=== PATIENT | female | born 1990 | race Hispanic/Latino ===

== ENCOUNTER 2017-06-23 06:53 | Inpatient (IN) | payer BC ==
[~2017-06-23] VITALS: Ht 157.5 cm; Wt 98.9 kg
[~2017-06-23 06:53] MED LIST: IRON325 M1 PO; PRENATAL TABLE1 EACH PO; TUMS500 MG PO
[2017-06-23 08:56] VITALS: BP 136/75
[2017-06-23 08:58] LABS: BASOPHIL (%) 0.2 % (0-1); EOSINOPHIL (%) 1.1 % (0-5); EOSINOPHIL COUNT 0.1 K/uL (0-0.3); HEMOGLOBIN 11.3 G/DL (11.9-15.5); IMMATURE GRANULOCYTE (%) 0.6 % (0.0-0.7); LYMPHOCYTE COUNT 2.1 K/uL (1.0-2.8); MCH 28.1 PG (29.0-34.0); MCHC 34.2 G/DL (30.0-36.0); MCV 82.1 FL (83-99); MONOCYTE (%) 6.3 % (3-12); MONOCYTE COUNT 0.5 K/uL (0-0.8); NEUTROPHIL (%) 66.8 % (45-76); NEUTROPHIL COUNT 5.6 K/uL (1.8-6.4); PLATELET COUNT 213 K/uL (156-360); RBC DIS.WIDTH-CV 18.1 % (11.8-14.6); RBC DIS.WIDTH-SD 53.3 % (39-53); RED BLOOD COUNT 4.02 M/uL (3.80-5.20); WHITE BLOOD COUNT 8.3 K/uL (4.1-10.2)
[2017-06-23 11:41] VITALS: BP 129/71
== END 2017-06-23 15:50 | disposition home or self-care (01) | DRG 781 ==
LOC: 2WEST 06:53 → 2SOUTH 12:25 → 2WEST 15:50
PROVIDERS: Obstetrics & Gynecology Obstetrics
DX: O32.1XX1 Maternal care for breech presentation, fetus 1 (principal); Z3A.39 39 weeks gestation of pregnancy; E66.9 Obesity, unspecified; O99.213 Obesity complicating pregnancy, third trimester; Z68.39 Body mass index [BMI] 39.0-39.9, adult; D50.9 Iron deficiency anemia, unspecified; O99.013 Anemia complicating pregnancy, third trimester; Z87.891 Personal history of nicotine dependence
CPT/HCPCS: 59025; 76815; 85025; 86850; 86900; 86901; J2274; J3010; J7120

== ENCOUNTER 2017-07-01 08:17 | Inpatient (IN) | payer BC ==
[2017-06-23 07:24] VITALS: BP 130/72
[2017-07-01] VITALS (19 sets, daily range): BP systolic 115–159; BP diastolic 68–97
[~2017-07-01] VITALS: Ht 157.5 cm; Wt 104.1 kg
[2017-07-01 09:59] LABS: BASOPHIL (%) 0.1 % (0-1); EOSINOPHIL (%) 0.9 % (0-5); EOSINOPHIL COUNT 0.1 K/uL (0-0.3); HEMATOCRIT 33.8 % (36.0-46.0); HEMOGLOBIN 11.7 G/DL (11.9-15.5); IMMATURE GRANULOCYTE (%) 0.5 % (0.0-0.7); LYMPHOCYTE (%) 22.6 % (15-42); LYMPHOCYTE COUNT 1.8 K/uL (1.0-2.8); MCH 28.2 PG (29.0-34.0); MCHC 34.6 G/DL (30.0-36.0); MCV 81.4 FL (83-99); MONOCYTE (%) 5.6 % (3-12); MONOCYTE COUNT 0.4 K/uL (0-0.8); NEUTROPHIL (%) 70.3 % (45-76); NEUTROPHIL COUNT 5.5 K/uL (1.8-6.4); PLATELET COUNT 212 K/uL (156-360); RBC DIS.WIDTH-CV 17.5 % (11.8-14.6); RBC DIS.WIDTH-SD 51.7 % (39-53); RED BLOOD COUNT 4.15 M/uL (3.80-5.20); WHITE BLOOD COUNT 7.8 K/uL (4.1-10.2)
[2017-07-02] VITALS (17 sets, daily range): BP systolic 127–165; BP diastolic 60–87
[2017-07-02 02:49] LABS: ALBUMIN 3.6 g/dL (3.2-4.8); CHLORIDE 108 mEq/L (99-109); POTASSIUM 4.1 mEq/L (3.7-5.4); SODIUM 135 mEq/L (136-147)
[2017-07-02 02:51] LABS: GLUCOSE 129 mg/dL (70-99); TOTAL PROTEIN 6.8 g/dL (6.4-8.3)
[2017-07-02 02:53] LABS: TOTAL BILIRUBIN 0.8 mg/dL (0.0-1.0)
[2017-07-02 02:55] LABS: ALKALINE PHOSPHATASE 187 IU/L (3-129); CREATININE 0.8 mg/dL (0.6-1.3); GFR ESTIMATE (CALCULATED) > 59 mL/min/
[2017-07-02 02:56] LABS: AST (GOT) 20 IU/L (2-34); UREA NITROGEN (BUN) 7 mg/dL (9-23)
[2017-07-02 02:58] LABS: ALT (GPT) 15 IU/L (3-49)
[2017-07-02 09:56] LABS: ALBUMIN 2.9 G/DL (3.2-4.8); ALKALINE PHOSPHATASE 121 IU/L (3-129); ALT (GPT) 12 IU/L (3-49); AST (GOT) 21 IU/L (2-34); CHLORIDE 108 MEQ/L (99-109); CREATININE 0.7 MG/DL (0.6-1.3); GFR ESTIMATE (CALCULATED) > 59 mL/min/; GLUCOSE 155 mg/dL (70-99); SODIUM 136 MEQ/L (136-147); TOTAL BILIRUBIN 0.6 MG/DL (0.0-1.0); TOTAL PROTEIN 4.7 G/DL (6.4-8.3); UREA NITROGEN (BUN) 9 mg/dL (9-23)
[2017-07-02 20:20] LABS: UR CREATININE CONCENTRATION 51.9 MG/DL
[2017-07-03 07:11] VITALS: BP 118/58
[2017-07-03 07:23] LABS: BASOPHIL (%) 0.3 % (0-1); EOSINOPHIL (%) 0.6 % (0-5); EOSINOPHIL COUNT 0.1 K/uL (0-0.3); HEMATOCRIT 26.3 % (36.0-46.0); HEMOGLOBIN 8.6 G/DL (11.9-15.5); IMMATURE GRANULOCYTE (%) 0.9 % (0.0-0.7); LYMPHOCYTE (%) 25.8 % (15-42); LYMPHOCYTE COUNT 3.6 K/uL (1.0-2.8); MCH 27.1 PG (29.0-34.0); MCHC 32.7 G/DL (30.0-36.0); MONOCYTE (%) 5.9 % (3-12); MONOCYTE COUNT 0.8 K/uL (0-0.8); NEUTROPHIL (%) 66.5 % (45-76); NEUTROPHIL COUNT 9.3 K/uL (1.8-6.4); PLATELET COUNT 195 K/uL (156-360); RBC DIS.WIDTH-CV 18.2 % (11.8-14.6); RBC DIS.WIDTH-SD 55.1 % (39-53); RED BLOOD COUNT 3.17 M/uL (3.80-5.20)
[2017-07-03 15:04] VITALS: BP 117/59
[2017-07-04 07:31] VITALS: BP 134/69
== END 2017-07-04 12:30 | disposition home or self-care (01) | DRG 775 ==
LOC: LDRP-OP → 2WEST 08:18 → LDRP-OP 10:08 → 2WEST 07-02 04:26 → LDRP-OP 07-28 10:20
PROVIDERS: Advanced Practice Midwife
DX: O70.1 Second degree perineal laceration during delivery (principal); D62 Acute posthemorrhagic anemia; O99.214 Obesity complicating childbirth; O99.02 Anemia complicating childbirth; E66.9 Obesity, unspecified; Z68.39 Body mass index [BMI] 39.0-39.9, adult; O77.0 Labor and delivery complicated by meconium in amniotic fluid; O48.0 Post-term pregnancy; Z37.0 Single live birth; Z3A.40 40 weeks gestation of pregnancy; Z87.891 Personal history of nicotine dependence
CPT/HCPCS: 80053; 82570; 84156; 85025; G0378; J0595; J7120; Q0169